=== PATIENT | male | born 2000 | race Hispanic/Latino ===

== ENCOUNTER 2020-04-03 13:41 | Emergency (ER) | payer SELFPAY ==
[~2020-04-03] VITALS: Ht 172.7 cm; Wt 63.5 kg
--- NOTE | 2020-04-03 14:40 | Emergency Department Note ---
History of Present Illnes History of Present Illness Chief Complaint: Eye, Ear, Nose, Throat, Dental History of Present Illness This is a 19 year old male PT STS HE HAD N/V X1 YESTERDAY W/ FEVER AND CONGESTION. STS "MY THYROID IS SWOLLEN" C/O SORE KUMAR APPLE. FEVER YESTERDAY OF 100.8, TAKING MUCINEX COLD AND FLU. Historian: Patient Arrival Mode: Car Onset (how long ago): day(s) (YESTERDAY) Radiation: Reports non-radiation Severity: mild Onset quality: gradual Chronicity: new Context: Denies recent illness Relieving factors: none Exacerbating factors: none Associated symptoms: Denies cough Treatments prior to arrival: none Past Medical/Family History Physician Review I have reviewed the patient's past medical and family history. Any updates have been documented here. Past Medical History Recent Fever: Yes Clinical Suspicion of Infectio: No New/Unexplained Change in Ment: No Other Medical History: NASAL CANCER Other Surgery: JUANITO CATH PLACEMENT AND REMOVAL, FEEDING TUBE PLACEMENT AND REMOVAL Social History Smoking Cessation: Current every day smoker Alcohol Use: Occasional Any Illegal Drug Use: Yes (MARIJUANA DAILY) TB Exposure/Symptoms: No Physically hurt or threatened: No Family History Family history of heart diseas: No Other Any Pre-Existing Lines (PICC,: No Review of Systems Review of Systems Constitutional: Reports as per HPI, Reports fever EENTM: Reports no symptoms Cardiovascular: Reports no symptoms Respiratory: Reports no symptoms Gastrointestinal: Reports as per HPI, Reports nausea, Reports vomiting Genitourinary: Reports no symptoms Musculoskeletal: Reports as per HPI, Reports other (PAIN OVER THYROID CARTILAGE) Integumentary: Reports no symptoms Neurological: Reports no symptoms Psychological: Reports no symptoms Endocrine: Reports no symptoms Hematological/Lymphatic: Reports no symptoms Physical Exam Related Data Allergies: Coded Allergies: No Known Allergies (Unverified , 04/03/20) Triage Vital Signs Vital Signs Date Time Temp Pulse Resp B/P (MAP) Pulse Ox O2 Delivery O2 Flow Rate FiO2 04/03/20 13:52 99.2 88 18 137/83 98 Room Air Vital signs reviewed: Yes Physical Exam CONSTITUTIONAL Constitutional: Present well-developed, Present well-nourished HENT HENT: Present normocephalic, Present atraumatic, Present oropharynx clear/moist, Present oropharynx normal, Present nose normal HENT L/R: Present left ext ear normal, Present right ext ear normal EYES Eyes: Reports PERRL, Reports conjunctivae normal NECK Neck: Present ROM normal, Present supple, Present other (NO MENINGEAL SIGNS, NO TENDERNESS OF ANTERIOR NECK NO SWELLING) PULMONARY Pulmonary: Present effort normal, Present breath sounds normal CARDIOVASCULAR Cardiovascular: Present regular rhythm, Present heart sounds normal, Present capillary refill normal, Present normal rate GASTROINTESTINAL Abdominal: Present soft, Present nontender, Present bowel sounds normal GENITOURINARY Genitourinary: Present exam deferred SKIN Skin: Present warm, Present dry MUSCULOSKELETAL Musculoskeletal: Present ROM normal NEUROLOGICAL Neurological: Present alert, Present oriented x 3, Present no gross motor or sensory deficits PSYCHOLOGICAL Psychological: Present mood/affect normal, Present judgement normal Assessment & Plan Medical Decision Making MDM NO EMERGENCY Reassessment Reassessment DC HOME, F/U PCP, TYLENOL/MOTRIN DIRECTED Assessment & Plan Final Impression: (1) Body aches Depart Disposition: HOME, SELF-CARE Last Vital Signs Date Time Temp Pulse Resp B/P (MAP) Pulse Ox O2 Delivery O2 Flow Rate FiO2 04/03/20 13:52 99.2 88 18 137/83 98 Room Air SKIP LOPEZ MD Apr 03, 2020 14:40
--- OUTSIDE RECORDS SUMMARY | 2020-04-04 16:43 | XMS REPORT | Continuity of Care Document ---
Author Author [facility] t Organization [facility] Address [address] [place] [address] Phone Unavailable Care Team Providers Care Press Setup Operator Name Role Phone NO, PCP PCP Unavailable Problems Condition Name Condition Details Condition Category Status Onset Date Resolution Date Last Treatment Date Treating Clinician Comments Source Generalized pain Problem Active [facility] Allergies, Adverse Reactions, Alerts This patient has no known allergies or adverse reactions. Social History Social Habit Start Date Stop Date Quantity Comments Source Sex Assigned At 2000 00:00:00 2000 00:00:00 Male [facility] Medications This patient has no known medications. Vital Signs Vital Name Observation Time Observation Value Comments Source Weight 2020-04-03 13:52:00 140 [lb_av] [facility] BMI (Body Mass Index) 2020-04-03 13:52:00 21.3 kg/m2 [facility] Procedures This patient has no known procedures. Plan of Care Planned Activity Planned Date Details Comments Source Instructions Viral Syndrome - Adult [facility] Encounters Start Date/Time End Date/Time Encounter Type Admission Type [facility] Care Department Encounter ID Source 2020-04-03 14:15:00 2020-04-03 15:00:00 Departed Emergency Room [facility] [id number] [facility] Results Test Description Test Time Test Comments Results Result Comments Source Thyroxine Free T4 2019-03-23 07:29:13 Test Item T4 Free (test code = T4 Free) 1.130 ng/dL 0.930-1.700 RPR [id number] 12:59:26* Test Item Value Reference Range Interpretation Comments RPR Qual (test code = RPR Qual) Non-Reactive Non-Reactive Reactive Control (test code = Reactive Control) Reactive Weak Reactive Control (test code = Weak Reactive Control) Weak Reac tive Non-Reactive Control (test code = Non-Reactive Control) Non-Reactiv e Lot # (test code = Lot #) [id number] N Expiration Dt (test code = Expiration Dt) 05-08-2020 N Thyroid Stimulating [id number] 08:32:19* Test Item Value Reference Range Interpretation Comments TSH (test code = TSH) 12.850 mIU/mL 0.270-4.200 H Lipid [id number] 08:21:59* Test Item Value Reference Range Interpretation Comments Cholesterol Total (test code = Cholesterol Total) 150 mg/dL 0-20 0 RISK OF HEART DISEASEPublished by [place] [employer] Association Analyte Optimal Borderline Increased RiskCHOL <200 200-239 >240TRIG <150 150-199 >200HDL Male >60 <40HDL Female >60 <50LDL <100 130-159 >160LDL Near optimal is 100-129 Triglycerides (test code = Triglycerides) 76 mg/dL 9-200 HDL (test code = HDL) 39 mg/dL 40-60 L LDL (test code = LDL) 96 mg/dL 0-130 The eq uation being used in this calculation is LDL = (Chol - HDL) - (Trig / 5) VLDL (test code = VLDL) 15 mg/dL 5-40 The equation being used in this calculation is VLDL = Trig / 5 Chol/HDL (test code = Chol/HDL) 3.8 ratio 0.0-5.0 LDL/HDL Ratio (test code = LDL/HDL Ratio) 2 N The equation being used in this calculation is LDL/HDL Ratio=LDL Calc/HDL Chol Urine [id number] 08:03:10 C Urine Added by [email or web address] growth at 24 hours. No growth at 48 hours.Urinalysis [id number] 04:58:25* Test Item Value Reference Range Interpretation Comments UA WBC (test code = UA WBC) 0-5 0-5 UA RBC (test code = UA RBC) None Seen 0-5 UA Bacteria (test code = UA Bacteria) Few A UA Squam Epithelial (test code = UA Squam Epithelial) 0-5 UA Mucous (test code = UA Mucous) Moderate A Alcohol [id number] 04:58:24* Test Item Value Reference Range Interpretation Comments Ethanol Level (test code = Ethanol Level) <0.00 g/dL 0.00-0.01 Intoxicated 0.080 g/dL or more Ethanol Inst (test code = Ethanol Inst) <0 N Comprehensive Metabolic [id number] 04:58:23* Test Item Value Reference Range Interpretation Comments Sodium Level (test code = Sodium Level) 139.0 mmol/L 135.0-145.0 Potassium Level (test code = Potassium Level) 3.9 mmol/L 3.5-5.1 Chloride Level (test code = Chloride Level) 102 mmol/L 98-105 CO2 (test code = CO2) 24 mmol/L 22-29 Anion Gap (test code = Anion Gap) 13 mmol/L 7-16 BUN (test code = BUN) 17.10 mg/dL 6.00-20.00 Creatinine Level (test code = Creatinine Level) 0.90 mg/dL 0.70-1 .20 BUN/Creat Ratio (test code = BUN/Creat Ratio) 19 N Glucose Level (test code = Glucose Level) 98 mg/dL 70-115 Calcium Level (test code = Calcium Level) 10.0 mg/dL 8.3-10.5 Alk Phos (test code = Alk Phos) 81 U/L 40-129 Bilirubin Total (test code = Bilirubin Total) 0.5 mg/dL 0.1-0.9 Albumin Level (test code = Albumin Level) 5.0 g/dL 3.5-5.2 Protein Total (test code = Protein Total) 7.3 g/dL 6.4-8.3 ALT (test code = ALT) 8 U/L 1-41 AST (test code = AST) 18 U/L 1-40 Globulin (test code = Globulin) 2.3 g/dL 2.9-3.1 L A/G Ratio (test code = A/G Ratio) 2.2 ratio N Comprehensive Metabolic [id number] 04:58:23* Test Item Value Reference Range Interpretation Comments Sodium Level (test code = Sodium Level) 139.0 mmol/L 135.0-145.0 Potassium Level (test code = Potassium Level) 3.9 mmol/L 3.5-5.1 Chloride Level (test code = Chloride Level) 102 mmol/L 98-105 CO2 (test code = CO2) 24 mmol/L 22-29 Anion Gap (test code = Anion Gap) 13 mmol/L 7-16 BUN (test code = BUN) 17.10 mg/dL 6.00-20.00 Creatinine Level (test code = Creatinine Level) 0.90 mg/dL 0.70-1 .20 BUN/Creat Ratio (test code = BUN/Creat Ratio) 19 N Glucose Level (test code = Glucose Level) 98 mg/dL 70-115 Calcium Level (test code = Calcium Level) 10.0 mg/dL 8.3-10.5 Alk Phos (test code = Alk Phos) 81 U/L 40-129 Bilirubin Total (test code = Bilirubin Total) 0.5 mg/dL 0.1-0.9 Albumin Level (test code = Albumin Level) 5.0 g/dL 3.5-5.2 Protein Total (test code = Protein Total) 7.3 g/dL 6.4-8.3 ALT (test code = ALT) 8 U/L 1-41 AST (test code = AST) 18 U/L 1-40 Globulin (test code = Globulin) 2.3 g/dL 2.9-3.1 L A/G Ratio (test code = A/G Ratio) 2.2 ratio N eGFR AA (test code = eGFR AA) >60 mL/min/1.73 m2 N eGFR (estimated Glomerular Filtration Rate) is an estimated value, calculated from the patient's serum creatinine using the MDRD equation. It is NOT the patient's actual GFR. The eGFR provides a more clinically useful measure of kidney disease than serum creatinine alone.This calculation takes sex and race into account, if the information is provided. If the race is not provided, and the patient is -[place], multiply by 1.212. If sex is not provided, and the patient is female, multiply by 0.742. Results for patients <18 years of age have not been validated by the MDRD study and should be interpreted with caution. eGFR Result Interpretation:eGFR > or = 60 is in the Normal RangeeGFR < 60 may mean kidney diseaseeGFR < 15 may mean kidney failure Ranges recommended by the National Kidney Foundation, http://nkdep.nih.gov Comprehensive Metabolic [id number] 04:58:23* Test Item Value Reference Range Interpretation Comments Sodium Level (test code = Sodium Level) 139.0 mmol/L 135.0-145.0 Potassium Level (test code = Potassium Level) 3.9 mmol/L 3.5-5.1 Chloride Level (test code = Chloride Level) 102 mmol/L 98-105 CO2 (test code = CO2) 24 mmol/L 22-29 Anion Gap (test code = Anion Gap) 13 mmol/L 7-16 BUN (test code = BUN) 17.10 mg/dL 6.00-20.00 Creatinine Level (test code = Creatinine Level) 0.90 mg/dL 0.70-1 .20 BUN/Creat Ratio (test code = BUN/Creat Ratio) 19 N Glucose Level (test code = Glucose Level) 98 mg/dL 70-115 Calcium Level (test code = Calcium Level) 10.0 mg/dL 8.3-10.5 Alk Phos (test code = Alk Phos) 81 U/L 40-129 Bilirubin Total (test code = Bilirubin Total) 0.5 mg/dL 0.1-0.9 Albumin Level (test code = Albumin Level) 5.0 g/dL 3.5-5.2 Protein Total (test code = Protein Total) 7.3 g/dL 6.4-8.3 ALT (test code = ALT) 8 U/L 1-41 AST (test code = AST) 18 U/L 1-40 Globulin (test code = Globulin) 2.3 g/dL 2.9-3.1 L A/G Ratio (test code = A/G Ratio) 2.2 ratio N eGFR AA (test code = eGFR AA) >60 mL/min/1.73 m2 N eGFR (estimated Glomerular Filtration Rate) is an estimated value, calculated from the patient's serum creatinine using the MDRD equation. It is NOT the patient's actual GFR. The eGFR provides a more clinically useful measure of kidney disease than serum creatinine alone.This calculation takes sex and race into account, if the information is provided. If the race is not provided, and the patient is -[place], multiply by 1.212. If sex is not provided, and the patient is female, multiply by 0.742. Results for patients <18 years of age have not been validated by the MDRD study and should be interpreted with caution. eGFR Result Interpretation:eGFR > or = 60 is in the Normal RangeeGFR < 60 may mean kidney diseaseeGFR < 15 may mean kidney failure Ranges recommended by the National Kidney Foundation, http://nkdep.nih.gov eGFR Non-AA (test code = eGFR Non-AA) >60.00 mL/min/1.73 m2 N eGFR (estimated Glomerular Filtration Rate) is an estimated value, calculated from the patient's serum creatinine using the MDRD equation. It is NOT the patient's actual GFR. The eGFR provides a more clinically useful measure of kidney disease than serum creatinine alone.This calculation takes sex and race into account, if the information is provided. If the race is not provided, and the patient is -[place], multiply by 1.212. If sex is not provided, and the patient is female, multiply by 0.742. Results for patients <18 years of age have not been validated by the MDRD study and should be interpreted with caution. eGFR Result Interpretation:eGFR > or = 60 is in the Normal RangeeGFR < 60 may mean kidney diseaseeGFR < 15 may mean kidney failure Ranges recommended by the National Kidney Foundation, http://nkdep.nih.gov Urine Drug [id number] 04:48:08* Test Item Value Reference Range Interpretation Comments Amphetamine Screen Ur (test code = Amphetamine Screen Ur) Negative Negative Barbiturate Screen Ur (test code = Barbiturate Screen Ur) Negative Negative Benzodiazepines Ur (test code = Benzodiazepines Ur) Negative Ne gative Cocaine Screen Ur (test code = Cocaine Screen Ur) Negative Nega tive U Methadone Scr (test code = U Methadone Scr) Negative Negative Opiate Screen Ur (test code = Opiate Screen Ur) Negative Negati ve U PCP Scrn (test code = U PCP Scrn) Negative Negative Cannabinoid Screen Ur (test code = Cannabinoid Screen Ur) POSITIVE Negative A U TCA (test code = U TCA) Negative Negative Th e results of all drug screen tests are only preliminary. Clinical consideration and professional judgment should be applied to any drug of abuse test result, particularly when preliminary positive results are obtained. Please order a separate confirmatory test if desired. Urinalysis with Culture, if [id number] 04:27:45* Test Item Value Reference Range Interpretation Comments UA Color (test code = UA Color) YELLO Yellow UA Appear (test code = UA Appear) CLEAR Clear UA pH (test code = UA pH) 6.5 UA Spec Grav (test code = UA Spec Grav) 1.028 1.001-1.035 UA Glucose (test code = UA Glucose) NEG Negative UA Bili (test code = UA Bili) NEG Negative UA Ketones (test code = UA Ketones) 15 mg/dL Negative A UA Blood (test code = UA Blood) NEG Negative UA Protein (test code = UA Protein) NEG Negative UA Urobilinogen (test code = UA Urobilinogen) 0.2 mg/dL N UA Nitrite (test code = UA Nitrite) NEG Negative UA Leuk Est (test code = UA Leuk Est) NEG Negative UA Micro Ind? (test code = UA Micro Ind?) Indicated Not Indicate d A Result created by rule [email or web address] Complete Blood Count with [id number] 04:19:43* Test Item Value Reference Range Interpretation Comments WBC (test code = WBC) 14.6 x10 4.4-10.5 H RBC (test code = RBC) 5.08 x10 4.10-5.70 Hgb (test code = Hgb) 14.7 g/dL 13.4-17.4 MCV (test code = MCV) 84.10 fL 80.00-100.00 Hct (test code = Hct) 42.7 % 38.7-52.0 MCHC (test code = MCHC) 34.40 g/dL 32.00-37.50 RDW CV (test code = RDW CV) 12.4 % 11.5-14.5 MCH (test code = MCH) 28.9 pg 27.0-32.5 Platelets (test code = Platelets) 288.0 x10 140.0-440.0 MPV (test code = MPV) 11.0 fL N Slide Review (test code = Slide Review) Auto Auto Result created by [email or web address] nRBC (test code = nRBC) 0 N NRBC Abs (test code = NRBC Abs) 0.00 x10 N IPF (test code = IPF) 0 % N Automated [id number] 04:19:43* Test Item Value Reference Range Interpretation Comments Neutro Auto (test code = Neutro Auto) 83.7 % 36.0-70.0 H Lymph Auto (test code = Lymph Auto) 9.4 % 12.0-44.0 L [place] Auto (test code = [place] Auto) 5.7 % 0.0-11.0 Eos, Auto (test code = Eos, Auto) 0.5 % 0.0-7.0 Basophil Auto (test code = Basophil Auto) 0.2 % 0.0-2.0 Neutro Absolute (test code = Neutro Absolute) 12.2 x10 1.6-7.4 H Lymph Absolute (test code = Lymph Absolute) 1.37 x10 .50-4.60 [place] Absolute (test code = [place] Absolute) .84 x10 .00-1.20 Eos Absolute (test code = Eos Absolute) 0.08 x10 0.00-0.74 Baso Absolute (test code = Baso Absolute) 0.03 x10 0.00-0.21 IG [id number] 04:19:43* Test Item Value Reference Range Interpretation Comments IG (test code = IG) 0.5 % 0.0-5.0 IG Abs (test code = IG Abs) 0 x10 N
== END 2020-04-03 15:00 | disposition home or self-care (01) ==
LOC: ER 14:15
DX: R52 Pain, unspecified (principal); R11.2 Nausea with vomiting, unspecified; Z85.89 Personal history of malignant neoplasm of other organs and systems; F17.210 Nicotine dependence, cigarettes, uncomplicated
CPT/HCPCS: 99282